=== PATIENT | female | born 1960 | race Caucasian/White ===

== ENCOUNTER 2018-03-29 20:43 | Emergency (ER) | payer MEDICAID ==
[~2018-03-29] VITALS: Ht 170.2 cm; Wt 134.9 kg
[~2018-03-29 20:43] MED LIST: CARAFATE 1 GM TA1 GM PO; CELEXA 20 MG TA20 MG PO; CLONAZEPAM 1 MG1 M1; HYDROCODONE-APA1 TA1 PO; MELOXICAM; ZESTRIL5 MG PO
[2018-03-29 21:36] LABS: ABSOLUTE BASOPHILS 0.1 thou/uL (0.0-0.2); ABSOLUTE EOSINOPHILS 0.2 thou/uL (0.0-0.7); ABSOLUTE LYMPHOCYTES 1.7 thou/uL (0.8-5.3); ABSOLUTE MONOCYTES 0.3 thou/uL (0.0-1.2); ABSOLUTE NEUTROPHILS 5.3 thou/uL (1.6-8.1); BASOPHILS 1.2 %; EOSINOPHILS 3.2 %; HEMATOCRIT 43.7 % (37.0-47.0); HEMOGLOBIN 14.5 gm/dL (12.0-15.0); LYMPHOCYTES 22.6 %; MCH 30.5 pg (26.0-34.0); MCV 92.4 fL (80.0-100.0); MONOCYTES 4.5 %; NUCLEATED RBCS 0 /100WBC; PLATELET COUNT* 383 thou/uL (150-400); POLYS 68.5 %; RBC 4.74 mil/uL (4.20-5.00); RDW-CV 13.9 % (10.5-14.5); WBC 7.7 thou/uL (4.0-11.0)
[2018-03-29 21:45] LABS: ANION GAP 12 mmol/L (7-16); BUN 16 mg/dL (7-18); CALCIUM 11.2 mg/dL (8.5-10.1); CHLORIDE 105 mmol/L (98-107); CO2 25 mmol/L (21-32); CREATININE 1.4 mg/dL (0.6-1.3); GLUCOSE 105 mg/dL (70-99); POTASSIUM 3.8 mmol/L (3.5-5.1); SODIUM 142 mmol/L (136-145)
[2018-03-29 21:56] LABS: ALBUMIN 3.9 g/dL (3.4-5.0); ALKALINE PHOSPHATASE 189 U/L (46-116); LIPASE 132 U/L (73-393); SGOT 23 U/L (15-37); SGPT 24 U/L (30-65); TOTAL BILIRUBIN 0.3 mg/dL (<0.1-1.0); TOTAL PROTEIN 8.7 g/dL (6.4-8.2); TROPONIN-I LEVEL <0.06 ng/mL (<0.06)
[2018-03-29 22:48] VITALS: BP 134/71
--- NOTE | 2018-03-30 10:55 | EKG ---
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: ANKIT : 1960 Requested By: Jame Castellanos Order Number: [id number] MD: Melo Hernandez Measurements Intervals [place] Rate: 98 P: 70 [place]: 133 QRS: 41 QRSD: 107 T: 40 QT: 344 QTc: 440 Interpretive Statements Sinus rhythm Baseline wander in lead(s) V1,V2 Compared to ECG 11/18/2016 04:20:54 No significant changes Electronically Signed On 03-30-2018 10:55:49 CDT by Melo Hernandez [email or web address] <ELECTRONICALLY SIGNED> By: Melo Hernandez MD, [facility] 03/30/18 1055 2100 99 Melo Hernandez MD, FACC /EPI
== END 2018-03-29 22:49 | disposition home or self-care (01) ==
LOC: M.ERS 20:43
PROVIDERS: Physician Assistant
DX: M62.838 Other muscle spasm (principal); K21.9 Gastro-esophageal reflux disease without esophagitis; F32.9 Major depressive disorder, single episode, unspecified; F41.9 Anxiety disorder, unspecified

== ENCOUNTER 2019-02-16 04:33 | Inpatient (IN) | payer OTHER ==
[~2019-02-16] VITALS: Ht 170.2 cm; Wt 146.6 kg
[~2019-02-16 04:33] MED LIST changes: -CLONAZEPAM 1 MG1 M1; +CLONAZEPAM 1 MG1 M1 PO
[2019-02-16 04:39] VITALS: BP 147/83
[2019-02-16] MEDS ORDERED: PRILOSEC10 MG PO (04:45)
[2019-02-16] MEDS ORDERED: GABAPENTIN 100100 MG PO (04:46)
[2019-02-16] MEDS ORDERED: CYMBALTA60 MG PO (04:46)
[2019-02-16 05:11] LABS: ABSOLUTE BASOPHILS 0.1 thou/uL (0.0-0.2); ABSOLUTE EOSINOPHILS 0.4 thou/uL (0.0-0.7); ABSOLUTE LYMPHOCYTES 1.2 thou/uL (0.8-5.3); ABSOLUTE MONOCYTES 0.6 thou/uL (0.0-1.2); ABSOLUTE NEUTROPHILS 8.9 thou/uL (1.6-8.1); BASOPHILS 0.7 %; EOSINOPHILS 3.4 %; HEMATOCRIT 39.8 % (37.0-47.0); HEMOGLOBIN 13.2 gm/dL (12.0-15.0); LYMPHOCYTES 10.4 %; MCH 30.5 pg (26.0-34.0); MCHC 33.2 g/dL (28.0-37.0); MCV 91.9 fL (80.0-100.0); MONOCYTES 5.6 %; NUCLEATED RBCS 0 /100WBC; PLATELET COUNT* 329 thou/uL (150-400); POLYS 79.9 %; RBC 4.33 mil/uL (4.20-5.00); RDW-CV 13.1 % (10.5-14.5); WBC 11.2 thou/uL (4.0-11.0)
[2019-02-16 05:21] LABS: ANION GAP 10 mmol/L (7-16); BUN 12 mg/dL (7-18); CALCIUM 9.9 mg/dL (8.5-10.1); CHLORIDE 103 mmol/L (98-107); CO2 26 mmol/L (21-32); CREATININE 1.1 mg/dL (0.6-1.3); GLUCOSE 167 mg/dL (70-99); POTASSIUM 4.1 mmol/L (3.5-5.1); SODIUM 139 mmol/L (136-145)
[2019-02-16 05:30] LABS: ALBUMIN 3.2 g/dL (3.4-5.0); ALKALINE PHOSPHATASE 137 U/L (46-116); LIPASE 62 U/L (73-393); SGOT 19 U/L (15-37); SGPT 23 U/L (30-65); TOTAL BILIRUBIN 0.4 mg/dL (<0.1-1.0); TOTAL PROTEIN 7.6 g/dL (6.4-8.2); TROPONIN-I LEVEL <0.06 ng/mL (<0.06)
[2019-02-16 08:36] VITALS: BP 151/70
[2019-02-16 09:28] VITALS: BP 140/76
[2019-02-16 09:32] LABS: URINE BILIRUBIN NEGATIVE (Negative); URINE BLOOD TRACE (Negative); URINE CLARITY CLEAR; URINE COLOR YELLOW; URINE GLUCOSE-RANDOM NEGATIVE (Negative); URINE KETONES NEGATIVE (Negative); URINE LEUKOCYTES-REFLEX NEGATIVE (Negative); URINE NITRITE-REFLEX NEGATIVE (Negative); URINE PROTEIN NEGATIVE (Negative); URINE SPECIFIC GRAVITY <= 1.005 (1.005-1.030); URINE UROBILINOGEN 0.2 E.U./dl (0.2-1.0)
--- NOTE | 2019-02-16 16:03 | NUR ---
PT ADMITTED TO ROOM 222 AROUND 0845 THIS AM. REFER TO ASSESSMENT. PT'S PRIORITY GOAL THIS SHIFT IS PAIN MANAGEMENT. IV TORADOL MOST EFFECTIVE. MULTIPLE TESTS COMPLETED THIS SHIFT. REFER TO RESULTS. ANTICIPATE SURGERY FOR CHOLECYSTITIS IN AM. CONSENT OBTAINED. NO OTHER CONCERNS AT THIS TIME. CLWR. WCTM.
[2019-02-16 17:25] VITALS: BP 107/63
[2019-02-16 17:27] VITALS: BP 107/63
--- NOTE | 2019-02-16 18:04 | EKG ---
[place] [address] ELECTROCARDIOGRAM REPORT Name: GOROD VARGAS Carl Room: [address] ADM IN .R.#: [id number] Admission: 02/16/19 Attend Phys: Ian Kurtz MD Discharge: Date of : 64 Report #: [id number] THIS REPORT FOR: //name// [facility] ED Test Date: 2019-02-16 Test Time: 04:46:41 Pat Name: GORDO VARGAS Department: Room: [facility] Gender: F Kilnman: LESLY : 1960 Requested By: Surendra Denney Order Number: [id number] MD: Garcia Spence Measurements Intervals [place] Rate: 85 P: 16 TN: 129 QRS: 33 QRSD: 92 T: 33 QT: 384 QTc: 457 Interpretive Statements Sinus rhythm Compared to ECG 03/29/2018 21:00:20 No significant changes Electronically Signed On 02-16-2019 18:04:14 CDT by Garcia Spence [email or web address] <ELECTRONICALLY SIGNED> By: Analilia Spence MD, [facility] 02/16/19 1804 044 Analilia Spence MD, [facility] /EPI
[2019-02-16 20:00] VITALS: BP 115/60
[2019-02-17] VITALS (12 sets, daily range): BP systolic 91–117; BP diastolic 48–75
--- NOTE | 2019-02-17 04:55 | NUR ---
vitals wnl, afebrile. slept through most of the night. remains npo. pain meds for right lower abdominal pain with complete relief. noticed that pt wasn't breathing well when sleeping, pt reports she has sleep apnea but was not officially given a diagnosis. provider aware. relief with repositioning in bed. otherwise uneventful night. call light within reach.
[2019-02-17 05:07] LABS: HEMOGLOBIN 12.9 gm/dL (12.0-15.0); MCHC 33.2 g/dL (28.0-37.0); MCV 90.4 fL (80.0-100.0); MPV 8.1 fl. (7.2-11.1); RBC 4.31 mil/uL (4.20-5.00); RDW-CV 13.2 % (10.5-14.5); WBC 13.6 thou/uL (4.0-11.0)
[2019-02-17 05:13] LABS: ALBUMIN 2.6 g/dL (3.4-5.0); CALCIUM 9.4 mg/dL (8.5-10.1); CREATININE 1.1 mg/dL (0.6-1.3); POTASSIUM 4.4 mmol/L (3.5-5.1); TOTAL BILIRUBIN 0.7 mg/dL (<0.1-1.0); TOTAL PROTEIN 6.7 g/dL (6.4-8.2)
--- NOTE | 2019-02-17 07:05 | NUR ---
PATIENT TO SURGERY AT 0600 ACCOMPANIED BY PREOP RN. NS AND ANTIBIOTIC RUNNING. NO CONCERNS AT THIS TIME.
--- NOTE | 2019-02-17 12:00 | NUR ---
MET WITH PT TO DISCUSS HOME SITUATION/DC PLANNING. PT LIVES WITH DTR, IS INDEPENDENT AND ACTIVE. USES NO EQUIPMENT. DENIES DC NEEDS. WILL FOLLOW
--- NOTE | 2019-02-17 13:13 | NUR ---
RECIEVED PT FROM PACU AT APPROXIMATELY 1035. PT DENIES PAIN, N/V, SOA AT THIS TIME. PT DROWSY FROM SURGERY. VIOLETA DRAIN TO RUQ. PT DENIES ANY FURTHER NEEDS AT THIS TIME. HOURLY ROUNDING AND FALL PRECAUTIONS IN PLACE FOR PT SAFETY. CLWR.
[2019-02-18] VITALS: BP 114/71
[2019-02-18 04:00] VITALS: BP 129/78
[2019-02-18 05:38] LABS: HEMATOCRIT 33.5 % (37.0-47.0); HEMOGLOBIN 11.2 gm/dL (12.0-15.0); MCH 30.4 pg (26.0-34.0); MCHC 33.5 g/dL (28.0-37.0); MCV 90.8 fL (80.0-100.0); MPV 8.3 fl. (7.2-11.1); RBC 3.69 mil/uL (4.20-5.00); RDW-CV 13.1 % (10.5-14.5); WBC 14.7 thou/uL (4.0-11.0)
[2019-02-18 05:52] LABS: ALBUMIN 2.2 g/dL (3.4-5.0); CALCIUM 9.6 mg/dL (8.5-10.1); CREATININE 0.9 mg/dL (0.6-1.3); POTASSIUM 4.4 mmol/L (3.5-5.1); TOTAL BILIRUBIN 0.3 mg/dL (<0.1-1.0); TOTAL PROTEIN 6.4 g/dL (6.4-8.2)
[2019-02-18 07:00] VITALS: BP 141/73; BP 150/90
--- NOTE | 2019-02-18 09:26 | NUR ---
INITIALASSESSMENT COMPLETED CHARTED. VSS. PT C/O MILD DISCOMFORT IN ABDOMEN,PRN TORADOL GIVEN ORDERED. TRACING NSR ON MONITOR. PT CURRENTLY ON ROOM AIR. PT DENIES N/V/D, SOA, CHEST PAIN. PT DENIES ANY FURTHER NEEDS AT THIS TIME. HOURLY ROUNDING IN PLACE FOR PT SAFETY. CLWR.
[2019-02-18 11:59] VITALS: BP 96/57
[2019-02-18 15:58] VITALS: BP 102/56
[2019-02-18 19:40] VITALS: BP 111/72
[2019-02-19] VITALS: BP 126/68
[2019-02-19 04:00] VITALS: BP 123/70
[2019-02-19 05:16] LABS: HEMATOCRIT 34.4 % (37.0-47.0); HEMOGLOBIN 11.6 gm/dL (12.0-15.0); MCH 30.6 pg (26.0-34.0); MCHC 33.7 g/dL (28.0-37.0); MCV 90.7 fL (80.0-100.0); MPV 7.7 fl. (7.2-11.1); RBC 3.8 mil/uL (4.20-5.00); RDW-CV 13.3 % (10.5-14.5); WBC 7.6 thou/uL (4.0-11.0)
[2019-02-19 05:32] LABS: ALBUMIN 2.2 g/dL (3.4-5.0); CALCIUM 9.7 mg/dL (8.5-10.1); POTASSIUM 3.8 mmol/L (3.5-5.1); TOTAL BILIRUBIN 0.2 mg/dL (<0.1-1.0); TOTAL PROTEIN 6.4 g/dL (6.4-8.2)
[2019-02-19 07:00] VITALS: BP 142/83
[2019-02-19 10:51] VITALS: BP 142/83
[2019-02-19 12:00] VITALS: BP 116/75
[2019-02-19] MEDS ORDERED: OXYCODONE HCL 55 MG PO (12:46)
[2019-02-20] MEDS ORDERED: CYMBALTA20 MG PO (11:19)
--- NOTE | 2019-02-20 16:06 | PATH ---
[address] [address] PATHOLOGY RPT PROCEDURE Name: MARIELLA VARGAS Room: [address] IN M.R.#: [id number] Admission: 02/16/19 Date of : 64 Discharge: 02/19/19 Report #: [id number] Path Case #: [id number] [facility] Accession Number: [id number] . 01 Material submitted: . gallbladder - GALLBLADDER . 01 Clinical history: . Pre-OP DX: Cholecystitis, cholelithiasis, morbid obesity Post-OP DX: Acute gangrenous cholecystitis and cholelithiasis . 02 Diagnosis: Gallbladder: - Acute, gangrenous cholecystitis and cholelithiasis. (FRANCISCO:nico; 02/20/2019) MBR 02/20/2019 1158 Local . 02 Electronically signed: . Jens Cabrera MD, Pathologist NPI- [id number] . 01 Gross description: . Received in formalin labeled "Mariella Vargas, gallbladder," is a green-wheeler, intact, hemorrhagic gallbladder measuring 12.0 x 4.6 x 2.2 cm. The margin has a staple line, which is removed and then inked black. Opening reveals brown-green bile and multiple smooth to gravel-like brown calculi measuring up to 0.6 cm. The mucosa is dark green, no mass lesions or polyps are grossly identified, and the average wall thickness ranges from 0.1-0.2 cm. The fundus and body are encased by wheeler-brown adipose tissue measuring up to 0.6 cm. [employer] sections are submitted as follows: A1-proximal margin and neck A2-mid body A3- fundus (TSD; 02/17/2019) TOB/TOB 02/17/2019 1806 Local . 02 Pathologist provided ICD-10: K80.00 . 02 CPT . 175087 Specimen Comment: A courtesy copy of this report has been sent to Specimen Comment: [phone], , . Specimen Comment: Report sent to ,DR MYLES / DR HORTON Performed at: [address], [place], [place] [id number] MD Zeyad Ward MD Phone: [phone] [place] [address] PATHOLOGY RPT PROCEDURE Name: MARIELLA VARGAS Room: [address] IN M.R.#: [id number] Admission: 02/16/19 Date of : 64 Discharge: 02/19/19 Report #: [id number] Path Case #: [id number] Performed at: 02 [facility] [address] [place], [place], [place] [id number] MD Jens Cabrera MD Phone: [phone]
== END 2019-02-19 14:04 | disposition home or self-care (01) | DRG 418 ==
LOC: M.ERS 04:33 → M.2W 06:31 → M.TBA-ER 06:31 → M.2W 08:48
PROVIDERS: Emergency Medicine Emergency Medical Services; Internal Medicine; ADMIT Family Medicine
PROC: 0FT44ZZ Resection of Gallbladder, Percutaneous Endoscopic Approach (ICD-10-PCS; principal; 2019-02-17)
DX: K80.00 Calculus of gallbladder with acute cholecystitis without obstruction (principal); R65.10 Systemic inflammatory response syndrome (SIRS) of non-infectious origin without acute organ dysfunction; Z68.43 Body mass index [BMI] 50.0-59.9, adult; E66.01 Morbid (severe) obesity due to excess calories; K21.9 Gastro-esophageal reflux disease without esophagitis; K82.A1 Gangrene of gallbladder in cholecystitis; F32.9 Major depressive disorder, single episode, unspecified; F41.9 Anxiety disorder, unspecified; Z96.651 Presence of right artificial knee joint; F41.1 Generalized anxiety disorder; Z96.653 Presence of artificial knee joint, bilateral; M19.90 Unspecified osteoarthritis, unspecified site; D72.829 Elevated white blood cell count, unspecified; E88.09 Other disorders of plasma-protein metabolism, not elsewhere classified; G47.33 Obstructive sleep apnea (adult) (pediatric); Z88.8 Allergy status to other drugs, medicaments and biological substances; Z79.899 Other long term (current) drug therapy; Z98.84 Bariatric surgery status

== ENCOUNTER 2019-02-20 10:53 | Emergency (ER) | payer OTHER ==
[~2019-02-20] VITALS: Ht 170.2 cm; Wt 131.5 kg
[~2019-02-20 10:53] MED LIST changes: +CYMBALTA60 MG PO; +GABAPENTIN 100100 MG PO; +OXYCODONE HCL 55 MG PO; +PRILOSEC10 MG PO
[2019-02-20] MEDS ORDERED: CYMBALTA20 MG PO (11:19)
[2019-02-20 12:58] VITALS: BP 140/90
== END 2019-02-20 13:06 | disposition home or self-care (01) ==
LOC: M.ERS 10:53
DX: Z48.03 Encounter for change or removal of drains (principal); K21.9 Gastro-esophageal reflux disease without esophagitis; F32.9 Major depressive disorder, single episode, unspecified; F41.9 Anxiety disorder, unspecified; Z90.49 Acquired absence of other specified parts of digestive tract; Z98.890 Other specified postprocedural states; Z96.651 Presence of right artificial knee joint; Z88.2 Allergy status to sulfonamides

== ENCOUNTER 2019-04-03 23:14 | Emergency (ER) | payer OTHER ==
[~2019-04-03] VITALS: Ht 170.2 cm; Wt 129.3 kg
[~2019-04-03 23:14] MED LIST changes: +CYMBALTA20 MG PO
[2019-04-04 00:16] LABS: CALCIUM 11.1 mg/dL (8.5-10.1); CREATININE 2.1 mg/dL (0.6-1.3)
[2019-04-04 00:21] LABS: ALBUMIN 3.5 g/dL (3.4-5.0); TOTAL BILIRUBIN 0.4 mg/dL (<0.1-1.0); TOTAL PROTEIN 8.3 g/dL (6.4-8.2)
[2019-04-04 00:39] LABS: ABSOLUTE BASOPHILS 0.1 thou/uL (0.0-0.2); ABSOLUTE EOSINOPHILS 0.1 thou/uL (0.0-0.7); ABSOLUTE LYMPHOCYTES 1.4 thou/uL (0.8-5.3); ABSOLUTE MONOCYTES 0.8 thou/uL (0.0-1.2); ABSOLUTE NEUTROPHILS 11.8 thou/uL (1.6-8.1); BASOPHILS 0.6 %; EOSINOPHILS 0.5 %; HEMATOCRIT 41.4 % (37.0-47.0); LYMPHOCYTES 9.7 %; MCH 30.7 pg (26.0-34.0); MCHC 33.9 g/dL (28.0-37.0); MCV 90.5 fL (80.0-100.0); MONOCYTES 5.6 %; MPV 7.9 fl. (7.2-11.1); NUCLEATED RBCS 0 /100WBC; PLATELET COUNT* 350 thou/uL (150-400); POLYS 83.6 %; RBC 4.57 mil/uL (4.20-5.00); WBC 14.1 thou/uL (4.0-11.0)
[2019-04-04 01:12] LABS: URINE BILIRUBIN NEGATIVE (Negative); URINE BLOOD NEGATIVE (Negative); URINE CLARITY CLEAR; URINE COLOR YELLOW; URINE GLUCOSE-RANDOM NEGATIVE (Negative); URINE KETONES NEGATIVE (Negative); URINE LEUKOCYTES-REFLEX 1+ (Negative); URINE NITRITE-REFLEX NEGATIVE (Negative); URINE PROTEIN TRACE (Negative); URINE UROBILINOGEN 0.2 E.U./dl (0.2-1.0)
[2019-04-04 01:31] LABS: SQUAMOUS >10 Many /LPF (0-3)
[2019-04-04 01:32] LABS: HYALINE CASTS 4-10 Moderate /LPF (None Seen); URINE RBC 3-10 Few /HPF (0-2); URINE WBC-REFLEX 6-15 Few /HPF (0-5)
[2019-04-04 01:33] LABS: CRYSTALS None Seen /LPF (None Seen)
[2019-04-04 03:48] VITALS: BP 128/82
--- NOTE | 2019-04-04 10:00 | EKG ---
[place] [address] ELECTROCARDIOGRAM REPORT Name: MARCIA VARGASA Carl Room: [facility]#: [id number] Admission: 04/03/19 Attend Phys: Discharge: 04/04/19 Date of : 64 Report #: [id number] THIS REPORT FOR: //name// [facility] ED Test Date: 2019-04-03 Test Time: 23:24:08 Pat Name: GORDO VARGAS Department: Room: Gender: F Pool Nurse: SONIA : 1960 Requested By: Samantha Quinones Order Number: [id number] MD: Melo Hernandez Measurements Intervals [place] Rate: 95 P: 46 [place]: 130 QRS: 8 QRSD: 103 T: 11 QT: 336 QTc: 423 Interpretive Statements Sinus rhythm Compared to ECG 02/16/2019 04:46:41 No significant changes Electronically Signed On 04-04-2019 9:59:46 CDT by Melo Hernandez [email or web address] <ELECTRONICALLY SIGNED> By: Melo Hernandez MD, [facility] 04/04/19 0959 2324 2324 Melo Hernandez MD, FACC /EPI
== END 2019-04-04 03:53 | disposition home or self-care (01) ==
LOC: M.ERS 23:14
PROVIDERS: Personal Emergency Response Attendant
DX: R55 Syncope and collapse (principal); K21.9 Gastro-esophageal reflux disease without esophagitis; F41.9 Anxiety disorder, unspecified; F32.9 Major depressive disorder, single episode, unspecified; Z90.49 Acquired absence of other specified parts of digestive tract; Z96.651 Presence of right artificial knee joint; Z88.8 Allergy status to other drugs, medicaments and biological substances

== ENCOUNTER 2020-11-04 12:45 | Inpatient (IN) | payer OTHER ==
[~2020-11-04] VITALS: Ht 170.2 cm; Wt 126.0 kg
--- NOTE | ~2020-11-04 | PROC ---
[address] [address] PROCEDURE REPORT Name: GORDO VARGAS Room: [address] IN M.R.#: [id number] Admission: 11/04/20 Attend Phys: Rafia Sewell Discharge: 11/06/20 Date of : 64 Report #: [id number] THIS REPORT FOR: cc: Malvin Caraballo Ahmad W. DO GALI,Medical Records Staff ~ For GI report, please see the Provation report in Perceptive 7 content. By: 1459Medical Records Staff GALI /TREY
[2020-11-04 13:31] VITALS: BP 142/82
[2020-11-04] MEDS ORDERED: LAMICTAL150 MG PO (13:35)
[2020-11-04] MEDS ORDERED: BUSPIRONE HCL10 MG PO (13:35)
[2020-11-04] MEDS ORDERED: LIPITOR10 MG PO (13:36)
[2020-11-04 14:22] LABS: ABSOLUTE BASOPHILS 0.1 thou/uL (0.0-0.2); ABSOLUTE EOSINOPHILS 0.4 thou/uL (0.0-0.7); ABSOLUTE LYMPHOCYTES 1.8 thou/uL (0.8-5.3); ABSOLUTE MONOCYTES 0.6 thou/uL (0.0-1.2); ABSOLUTE NEUTROPHILS 7.8 thou/uL (1.6-8.1); BASOPHILS 0.8 %; EOSINOPHILS 3.9 %; HEMATOCRIT 38.8 % (37.0-47.0); HEMOGLOBIN 13.3 gm/dL (12.0-15.0); LYMPHOCYTES 16.3 %; MCHC 34.4 g/dL (28.0-37.0); MCV 90.1 fL (80.0-100.0); MPV 7.8 fl. (7.2-11.1); NUCLEATED RBCS 0 /100WBC; PLATELET COUNT* 331 thou/uL (150-400); WBC 10.7 thou/uL (4.0-11.0)
[2020-11-04 14:32] LABS: CREATININE 1.2 mg/dL (0.6-1.3); POTASSIUM 4.1 mmol/L (3.5-5.1)
[2020-11-04 14:42] LABS: ALBUMIN 3.5 g/dL (3.4-5.0); MAGNESIUM 1.7 mg/dL (1.8-2.4); TOTAL BILIRUBIN 0.3 mg/dL (<0.1-1.0); TOTAL PROTEIN 7.8 g/dL (6.4-8.2)
--- NOTE | 2020-11-04 15:20 | NUR ---
PT STATED THE GLUCAGON DID NOT HELP.
[2020-11-04 18:22] VITALS: BP 106/69
--- NOTE | 2020-11-04 20:27 | NUR ---
ALERT AND ORIENTED X 4 FEMALE PATIENT ARRIVED TO UNIT/BED 108 FROM ER PRIOR TO SHIFT CHANGE. CURRENT VITAL SIGNS STABLE. ADMISSION ROUTINES AND ORDERS IN PROGRESS. CONTINUE TO MONITOR.
[2020-11-04 20:30] VITALS: BP 106/63
--- NOTE | 2020-11-05 04:35 | NUR ---
PATIENT HAS REMAINED ALERT AND ORIENTED X 4 THROUGHOUT THE SHIFT AND RESTING QUIETLY ON HOURLY ROUNDS. UP INDEPENDENTLY TO BR. IVF'S PER ORDER. NPO. MOUTH SWABS AND MOISTURIZER HAVE BEEN PROVIDED. PATIENT HAS HAD REFERRAL SPECIALIST THIS SHIFT OF NAUSEA, VOMITING OR CHEST PRESSURE. CONTINUE TO MONITOR.
[2020-11-05 08:10] VITALS: BP 103/61
--- NOTE | 2020-11-05 10:40 | NUR ---
cm completed the initial assessment. pt admitted with dx of esophageal obstruction. pt stated she is on disability. pt lives home and is independent w/cares. pt does use hh nor has hx with snf. pt uses no dmes. cm does not anticipate any cm needs at this time.
--- NOTE | 2020-11-05 12:09 | EKG ---
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
--- NOTE | 2020-11-05 12:11 | NUR ---
Nutrition: Consult received for "lap band." Spoke with RN - pt has a food bolus stuck and will have EGD today, and possibly remove her lap band. She was to have lap band removed and sleeve put in, but pt doesn't want sleeve. Currently NPO for EGD. Albumin 3.5. RD available via consult if needed. Consider mild risk.
--- NOTE | 2020-11-05 18:41 | NUR ---
Pt remained A&O x4 for entire shift. Pt pleasant with staff. Vital signs stable. Pt denies any pain, only discomfort where the food is stuck. Pt did complain of a headache and was given meds per AUG. Pt off unit for EGD from 1444 to 1819. Pt arrived to floor awake and ready to eat. Pt notes feeling much better. Bed in low position, call light within reach.
[2020-11-05 20:00] VITALS: BP 101/72
--- NOTE | 2020-11-06 04:16 | NUR ---
PATIENT AWAKE FIRST PART OF THE NIGHT AMBULATING IN HALLWAYS. PT SAID SHE USE TO WORK NIGHTS AND BEING AWAKE IS NOT UNUSUAL FOR HER. PT HAS SCHEDULED TORADOL AND DENIES PAIN AT THIS TIME. PT SAID SHE FEELS MUCH BETTER AFTER EGD AND PROCEDURE AND IS HOPING TO GO HOME. PT IS ON ROOM AIR. FREQUENTLY USED ITEMS AND CALL LIGHT WITHIN REACH. SIDERAILS UPX2. WILL CONTINUE TO MONITOR.
[2020-11-06 05:10] LABS: HEMATOCRIT 34.1 % (37.0-47.0); HEMOGLOBIN 11.8 gm/dL (12.0-15.0); MCH 30.9 pg (26.0-34.0); MCHC 34.4 g/dL (28.0-37.0); MCV 89.7 fL (80.0-100.0); MPV 8.2 fl. (7.2-11.1); RBC 3.8 mil/uL (4.20-5.00); WBC 7.9 thou/uL (4.0-11.0)
[2020-11-06 05:18] LABS: CALCIUM 9.1 mg/dL (8.5-10.1); POTASSIUM 4.5 mmol/L (3.5-5.1)
[2020-11-06 08:00] VITALS: BP 125/71
[2020-11-06 08:17] VITALS: BP 116/69
[2020-11-06] MEDS ORDERED: FLUCONAZOLE 10100 MG PO (08:59)
[2020-11-06 09:41] VITALS: BP 116/69
[2020-11-06 10:19] VITALS: BP 116/69
--- NOTE | 2020-11-09 11:21 | CON ---
[address] [address] CONSULTATION Name: GORDO VARGAS Room: [address] IN M.R.#: [id number] Admission: 11/04/20 Attend Phys: Rafia Sewell Discharge: 11/06/20 Date of : 64 Report #: [id number] THIS REPORT FOR: cc: Malvin Caraballo Ahmad W. DO Vardakis, Gregory DO ~ DOC #: [id number] cc: Kyle Rocha DO, Malvin Caraballo DO, MD Glynn Hussein DO DATE OF CONSULTATION: 11/05/2020 REFERRING PHYSICIAN: Kyle Rocha MD. REASON FOR CONSULTATION: 1. Suspected food bolus obstruction as well as dysphagia with suspected food bolus obstruction. 2. Status post lap band in 2008 for weight loss with plans for removal in the near future. 3. Chronic acid reflux. 4. Status post recent cholecystectomy for symptomatic cholelithiasis. RECOMMENDATIONS: Since the patient is not able to swallow, she is not able to eat or drink anything, we will proceed with upper endoscopy under general endotracheal anesthesia and see if we can remove any of the food that is noted on CT scan above the lap band. I will make further recommendations once we proceed with the study and see what is going on within the upper GI tract. I have discussed this plan with the patient well and she is agreeable to same. HISTORY OF PRESENT ILLNESS: The patient is a very pleasant 59-year-old white female who was admitted to the hospital because she has not been able to eat or drink much of anything since Wednesday night. She had been eating some grits and then when she woke up on Wednesday morning, she was not able to keep anything down. She was admitted to the hospital for further evaluation and treatment and underwent a CT scan of the chest, abdomen and pelvis which revealed thickening of the distal esophagus with suspected food sitting above the lap band with a lap band being in place. She had already discussed with Dr. Simpson plans to remove the lap band as she had been having some issues with dysphagia about a month ago. Today, food out of the lap band and she had been eating and drinking fine until this last weekend. She has had no restrictions. She has never had any problems with dysphagia in the past, but has had problems with chronic reflux for which she takes Nexium on a daily basis. She has undergone endoscopic studies of her upper GI tract in the past, but it has been a number of years since that time. She denies any complaints of any nausea, vomiting, hematemesis, fever, chills, melena or hematochezia. [place] [address] CONSULTATION Name: OGRDO VARGAS Room: [address] IN [facility].#: [id number] Admission: 11/04/20 Attend Phys: Rafia Sewell Discharge: 11/06/20 Date of : 64 Report #: [id number] hospital for further evaluation and treatment. ALLERGIES: ALPRAZOLAM. MEDICATIONS: Include lisinopril, gabapentin, Lamictal, BuSpar, atorvastatin, omeprazole. PAST MEDICAL AND SURGICAL HISTORY: Remarkable for underlying hypertension, anxiety and depression, hyperlipidemia, obesity, chronic acid reflux. She has had problems with peripheral neuropathy. She has had previous lap band surgery in 2008. She has had bilateral knee replacement. She has had left carpal tunnel release, left wrist surgery and she has had previous cholecystectomy. SOCIAL HISTORY: The patient does not smoke or drink. FAMILY HISTORY: Negative. PHYSICAL EXAMINATION: GENERAL: Revealed a 59-year-old white female, who is awake and alert. CARDIOPULMONARY: Revealed a regular rhythm. LUNGS: Clear. ABDOMEN: Soft and nontender. No rebound or guarding noted. LABORATORY DATA: Laboratory tests from admission revealed a white count 10.7, hemoglobin 13.3, platelet count 331,000, her MCV is 90.1, RDW is 13.0. Sodium 139, potassium 4.1, chloride 104, bicarbonate is 28. Her BUN is 22, creatinine 1.2 for GFR of only 46. Total bilirubin 0.3, alkaline phosphatase 130, AST 17, ALT 18, albumin is 3.5. CT scan of the chest, abdomen and pelvis was reviewed and findings were as noted above. DISCUSSION: At the present time, the patient has had some problems with swallowing. We will proceed with an upper endoscopy today and make further recommendations thereafter. I have discussed these plans with the patient as well and she is agreeable to same. DO KRISSY Torres/TRACEY/PHYLLIS [address] [address] CONSULTATION Name: GORDO VARGAS Room: [address] IN M.R.#: [id number] Admission: 11/04/20 Attend Phys: Rafia Sewell Discharge: 11/06/20 Date of : 64 Report #: [id number] <ELECTRONICALLY SIGNED> By: Glynn Lopez DO 11/09/20 1121 1727 0014Glynn Lopez DO /nt
[2020-11-11] MEDS ORDERED: LIPITOR 20 MG T20 M1 PO (08:40)
[2020-11-11] MEDS ORDERED: CYCLOBENZAPRINE5 MG PO (08:41)
[2020-11-12] MEDS ORDERED: DIFLUCAN100 MG PO (13:13)
[2020-11-12] MEDS ORDERED: BACTRIM DS TAB1 EAC1 PO (13:14)
[2020-11-12] MEDS ORDERED: KEFLEX250 MG PO (13:16)
[2020-11-12] MEDS ORDERED: NORCO5 PO ×2 (13:17→14:23)
[2020-11-12] MEDS ORDERED: LISINOPRIL5 MG PO (13:18)
== END 2020-11-06 10:22 | disposition home or self-care (01) | DRG 369 ==
LOC: M.ERS 12:45 → M.ORTHSURG 17:05 → M.TBA-ER 17:05 → M.ORTHSURG 18:23
PROVIDERS: Emergency Medicine Emergency Medical Services; Family Medicine; ADMIT Internal Medicine; ATTEND Internal Medicine
PROC: 0DC68ZZ Extirpation of Matter from Stomach, Via Natural or Artificial Opening Endoscopic (ICD-10-PCS; principal; 2020-11-05)
PROC: 06L28CZ Occlusion of Gastric Vein with Extraluminal Device, Via Natural or Artificial Opening Endoscopic (ICD-10-PCS; principal; 2020-11-05)
DX: B37.81 Candidal esophagitis (principal); Z68.41 Body mass index [BMI] 40.0-44.9, adult; K22.2 Esophageal obstruction; K21.00 Gastro-esophageal reflux disease with esophagitis, without bleeding; E66.01 Morbid (severe) obesity due to excess calories; F32.9 Major depressive disorder, single episode, unspecified; I10 Essential (primary) hypertension; E78.5 Hyperlipidemia, unspecified; G62.9 Polyneuropathy, unspecified; Z96.653 Presence of artificial knee joint, bilateral; R12 Heartburn; F41.9 Anxiety disorder, unspecified; Z20.822 Contact with and (suspected) exposure to COVID-19; T18.108A Unspecified foreign body in esophagus causing other injury, initial encounter; T18.2XXA Foreign body in stomach, initial encounter; G89.29 Other chronic pain; M17.0 Bilateral primary osteoarthritis of knee; Z98.84 Bariatric surgery status; Z88.8 Allergy status to other drugs, medicaments and biological substances; Z90.49 Acquired absence of other specified parts of digestive tract; X58.XXXA Exposure to other specified factors, initial encounter; Y93.89 Activity, other specified; Y92.89 Other specified places as the place of occurrence of the external cause; Y99.8 Other external cause status

== ENCOUNTER 2020-11-09 11:44 | Emergency (ER) | payer OTHER ==
[~2020-11-09] VITALS: Ht 170.2 cm; Wt 108.9 kg
[~2020-11-09 11:44] MED LIST changes: +BUSPIRONE HCL10 MG PO; +FLUCONAZOLE 10100 MG PO; +LAMICTAL150 MG PO; +LIPITOR10 MG PO
[2020-11-09] MEDS ORDERED: BACTRIM DS TAB1 EACH PO (13:55)
[2020-11-09] MEDS ORDERED: CEPHALEXIN500 MG PO (13:55)
[2020-11-09] MEDS ORDERED: NORCO5 PO ×3 (13:55→14:01)
[2020-11-09 14:18] VITALS: BP 150/75
[2020-11-11] MEDS ORDERED: LIPITOR 20 MG T20 M1 PO (08:40)
[2020-11-11] MEDS ORDERED: CYCLOBENZAPRINE5 MG PO (08:41)
[2020-11-12] MEDS ORDERED: DIFLUCAN100 MG PO (13:13)
[2020-11-12] MEDS ORDERED: BACTRIM DS TAB1 EAC1 PO (13:14)
[2020-11-12] MEDS ORDERED: KEFLEX250 MG PO (13:16)
[2020-11-12] MEDS ORDERED: NORCO5 PO ×2 (13:17→14:23)
[2020-11-12] MEDS ORDERED: LISINOPRIL5 MG PO (13:18)
== END 2020-11-09 14:18 | disposition home or self-care (01) ==
LOC: M.ERS 11:44
DX: S90.212A Contusion of left great toe with damage to nail, initial encounter (principal); K21.9 Gastro-esophageal reflux disease without esophagitis; Z98.890 Other specified postprocedural states; Z96.653 Presence of artificial knee joint, bilateral; Z88.8 Allergy status to other drugs, medicaments and biological substances; W22.8XXA Striking against or struck by other objects, initial encounter; Y93.89 Activity, other specified; Y92.89 Other specified places as the place of occurrence of the external cause; Y99.8 Other external cause status

== ENCOUNTER → 2020-11-12 | Day surgery (SDC) | payer OTHER ==
[~2020-11-12] MED LIST changes: +BACTRIM DS TAB1 EAC1 PO; +BACTRIM DS TAB1 EACH PO; +CEPHALEXIN500 MG PO; +CYCLOBENZAPRINE5 MG PO; +DIFLUCAN100 MG PO; +KEFLEX250 MG PO; +LIPITOR 20 MG T20 M1 PO; +LISINOPRIL5 MG PO; +NORCO5 PO
--- NOTE | 2020-11-20 20:06 | OP ---
[address] [address] OPERATIVE REPORT Name: GORDO VARGAS Room: [facility]#: [id number] Admission: 11/12/20 Attend Phys: Harley Simpson MD Discharge: Date of : 64 Report #: [id number] THIS REPORT FOR: cc: Malvin Caraballo Ahmad W. DO Joseph, Sigi P. MD ~ DOC #: [id number] Harley Simpson MD DATE OF SURGERY: 11/12/2020 PREOPERATIVE DIAGNOSIS: Failed Lap-Band. POSTOPERATIVE DIAGNOSIS: Failed Lap-Band. OPERATIVE PROCEDURE DONE: Laparoscopic Lap-Band removal and port removal. OPERATING SURGEON: Harley Simpson MD INDICATIONS FOR PROCEDURE: The patient is a 59-year-old female who presents with features of refractory reflux symptoms and inability to lose weight. She has a history of a Lap-Band placement done many years ago. Also, she was recently admitted with a Lap-Band obstruction about a week ago here at [facility]. The patient wished to have the Lap-Band removed. The patient showed understanding and agreed to proceed. DESCRIPTION OF PROCEDURE: After explaining to the patient in detail and informed consent was obtained, the patient was identified in the preoperative holding area. The patient was transferred to the operating room and was placed in supine position. Sequential compression devices were placed for DVT prophylaxis. Preoperative antibiotics were given. After induction of anesthesia, the abdomen was prepped and draped in a sterile fashion. Through a left upper quadrant 1 cm incision and using Optiview technique, peritoneal cavity was entered and pneumoperitoneum was created. Thereafter, under direct vision, another 12 mm trocar was placed in the right mid abdomen and another 5 mm trocar was placed in the right flank and through a 1 cm incision in the epigastrium, a Rodrigo retractor was introduced and the left lobe of the liver was retracted. On initial inspection, the Lap-Band appeared to be in place. I scored the adhesions over the Lap-Band and the Lap-Band was unbuckled and the tubing was divided distal to the hub. The Lap-Band was then pulled out. As soon as I pulled out, I saw some oozing from the Lap-Band area and along the lesser curvature, there was noted to be a small bleeding vessel, which I initially tried to coagulate with EnSeal. However, I was unable to get a good grasp of it and therefore, I placed 2 clips and then cauterized with EnSeal as well and I was able to finally control this bleeder. Thorough saline irrigation was given. I then instilled some FloSeal in this area. Absolute hemostasis was ensured. The abdomen was then deflated and the 12 mm port site [place] [address] OPERATIVE REPORT Name: GORDO VARGAS Room: [facility]#: [id number] Admission: 11/12/20 Attend Phys: Harley Simpson MD Discharge: Date of : 64 Report #: [id number] another 2 cm. The port was identified and the port was dissected free from the surrounding structures. Port was then removed with the tubing intact. The incisions were then closed with 4-0 Monocryl. Approximately 10 mL of lidocaine and Marcaine mix was injected. The patient was awoken from anesthesia and was transferred to the recovery room in stable condition. ESTIMATED BLOOD LOSS: Approximately 75 mL. CONDITION: The patient is stable. FLUIDS: Given per anesthesia notes. SPECIMEN SENT: None. COMPLICATIONS: None. ANESTHESIA: General anesthesia. Harley Simpson MD [facility] <ELECTRONICALLY SIGNED> By: Harley Simpson MD 11/20/202005 1344 1535Siesteban Simpson MD /nt
== END | disposition home or self-care (01) ==
LOC: M.SUR 06:40
PROVIDERS: ATTEND Surgery
DX: K95.09 Other complications of gastric band procedure (principal); I10 Essential (primary) hypertension; E78.5 Hyperlipidemia, unspecified; M19.90 Unspecified osteoarthritis, unspecified site; K21.9 Gastro-esophageal reflux disease without esophagitis; F32.9 Major depressive disorder, single episode, unspecified; F41.9 Anxiety disorder, unspecified; Z98.890 Other specified postprocedural states; Z79.899 Other long term (current) drug therapy; Z20.822 Contact with and (suspected) exposure to COVID-19; Z90.49 Acquired absence of other specified parts of digestive tract; Z96.651 Presence of right artificial knee joint